=== PATIENT | female | born 1985 | race Caucasian/White ===

== ENCOUNTER → 2018-08-19 | Outpatient (CLI) | payer OTHER ==
[2017-08-04 06:42] VITALS: BMI 30.2
[~2018-08-19] MED LIST: ACET-1718 PO; CHOL10005 PO; FAMO1TAB59 PO; FERR-59 PO; IBUP-2704 PO; IBUP800T37 PO; LOR5/325 PO; METO-566 PO; ONDA4TAB97 PO; PREN-161 PO
== END ==
LOC: LAB 10:53
PROVIDERS: ATTEND Obstetrics & Gynecology
DX: R63.4 Abnormal weight loss (principal); R42 Dizziness and giddiness
CPT/HCPCS: 36415; 84443; 85027

== ENCOUNTER → 2018-08-31 | Outpatient (CLI) | payer OTHER ==
[2017-08-04 06:42] VITALS: BMI 30.2
--- NOTE | 2018-08-31 17:04 | RADIOLOGY IMAGING REPORT ---
FACILITY: [facility] - [place] PATIENT NAME: Christine Carter : 1985 MR: [id number] V: [id number] EXAM DATE: ORDERING PHYSICIAN: CARLOS ZAMORA TECHNOLOGIST: Location: [facility] Patient: Christine Carter : 1985 Visit/Account:[id number] Date of Sevice: 08/31/2018 PELVIC HISTORY: Inguinal lymphadenopathy, evaluate uterus and ovaries TECHNIQUE: Transvaginal and transabdominal ultrasound pelvis. COMPARISON: None. FINDINGS: Uterus: Retroverted; 8.6 cm length x 5.1 cm AP x 5.8 cm transverse. Myometrium: Unremarkable. Endometrium: Unremarkable; double thickness 14.6 mm. Cervix: Grossly negative. Ovaries: Right - 4.1 x 3.7 x 2.2 cm Left - 2.2 x 2.6 x 2.4 cm Blood flow is documented in each ovary by duplex Doppler ultrasound. Adnexa: Grossly unremarkable. Free pelvic fluid: Mild. IMPRESSION: Retroverted uterus Mild amount of free pelvic fluid Report Dictated By: Jazzmine Chauhan MD at 08/31/2018 4:58 PM Report E-Signed By: Jazzmine Chauhan MD at 08/31/2018 5:00 PM WSN:[email or web address]
--- NOTE | 2018-08-31 17:46 | RADIOLOGY IMAGING REPORT ---
FACILITY: [facility] - [place] PATIENT NAME: Christine Carter : 1985 MR: [id number] V: [id number] EXAM DATE: ORDERING PHYSICIAN: CARLOS ZAMORA TECHNOLOGIST: Location: [facility] [place] Patient: Christine Carter : 1985 Visit/Account:[id number] Date of Sevice: 08/31/2018 Exam type: GROIN ULTRASOUND History: Inguinal lymphadenopathy Comparison: None. Findings: There are multiple right inguinal lymph nodes present. The largest measures 1.8 x 0.7 x 0.3 cm and a ppears fatty replaced. At least five other small lymph nodes all measuring less than 1 cm identified in the right inguinal region. There are multiple left inguinal lymph nodes present the largest measures 1.4 x 0.4 x 1.6 cm and is f atty replaced. The next largest measures 1.2 x 0.8 x 0.6 cm and is also fatty replaced. At least th ree other left inguinal lymph nodes are present all measuring less than 1 cm IMPRESSION: 1. Are numerous bilateral inguinal lymph nodes as detailed above Report Dictated By: Jazzmine Chauhan MD at 08/31/2018 5:40 PM Report E-Signed By: Jazzmine Chauhan MD at 08/31/2018 5:42 PM WSN:[email or web address]
== END ==
LOC: US 00:14
PROVIDERS: ATTEND Obstetrics & Gynecology
DX: N85.4 Malposition of uterus (principal); R59.0 Localized enlarged lymph nodes
CPT/HCPCS: 76830; 76856

== ENCOUNTER → 2018-09-09 | Outpatient (REF) ==
[2017-08-04 06:42] VITALS: BMI 30.2
[2018-09-09 08:28] LABS: LDL CHOLESTEROL 85 mg/dl
== END ==
DX: Z02.9 Encounter for administrative examinations, unspecified (principal)

== ENCOUNTER → 2018-10-28 | Outpatient (CLI) | payer OTHER ==
[2017-08-04 06:42] VITALS: BMI 30.2
[~2018-10-28] MED LIST changes: +SERT-1 PO; +SERT25TA87 PO
--- NOTE | 2018-10-28 18:35 | RADIOLOGY IMAGING REPORT ---
FACILITY: [facility] PATIENT NAME: Christine Carter : 1985 MR: [id number] V: [id number] EXAM DATE: ORDERING PHYSICIAN: CARLOS ZAMORA TECHNOLOGIST: Location: [facility] - [place] Patient: Christine Carter : 1985 Visit/Account:[id number] Date of Sevice: 10/28/2018 SOFT TISSUE HEAD NECK HISTORY: Lymphadenopathy. Palpable abnormality neck. COMPARISON: Bilateral inguinal ultrasound 08/31/2018 FINDINGS: Ultrasound of the cervical radha regions was performed bilateral. RIGHT * Level V hypoechoic and heterogeneous enlarged 0.6 x 1.7 x 2.4 cm node. * Level V uniformly hypoechoic borderline enlarged 0.4 x 0.9 x 1.0 cm node. * Level II morphologically unremarkable enlarged 1.0 x 2.1 x 3.7 cm node. * Level I uniformly hypoechoic and lobulated 0.5 x 0.7 x 1.7 cm node LEFT * Level V heterogeneous 0.6 x 0.6 x 3.1 cm node. * Level II morphologically unremarkable enlarged 0.7 x 1.3 x 1.7 cm node. * Level II morphologically unremarkable enlarged 0.9 x 2.0 x 2.1 cm node. IMPRESSION: Bilateral enlarged and/or morphologically atypical cervical lymph nodes. While these may be reactive , several of them are atypical in morphology and further evaluation with surgical resection, ultrasou nd-guided tissue sampling or at least short-term ultrasound follow-up should be considered to exclude neoplasm. If ultrasound-guided tissue sampling is performed, real-time assessment of these nodes by the radiologist can be performed prior to such to identify the most appropriate node. Particularly the left level V node should be considered given its heterogeneity. Report Dictated By: Rodrigo Rivas MD at 10/28/2018 6:22 PM Report E-Signed By: Rodrigo Rivas MD at 10/28/2018 6:31 PM WSN:[email or web address]
--- NOTE | 2018-10-28 18:40 | RADIOLOGY IMAGING REPORT ---
FACILITY: [facility] - [place] PATIENT NAME: Christine Carter : 1985 MR: [id number] V: [id number] EXAM DATE: ORDERING PHYSICIAN: CARLOS ZAMORA TECHNOLOGIST: Location: [facility] [place] Patient: Christine Carter : 1985 Visit/Account:[id number] Date of Sevice: 10/28/2018 US GROIN HISTORY: Inguinal adenopathy; follow-up. COMPARISON: 08/31/2018 FINDINGS: Ultrasound of the inguinal regions was performed bilateral with attention to the inguinal lymph nodes . All visualized nodes are now within normal limits for size and morphology, largest on the left measur ing 0.5 x 0.8 x 1.2 cm (previously 0.6 x 0.8 x 1.2 cm) and the remainder subcentimeter. IMPRESSION: No enlarged or morphologically suspicious inguinal lymph nodes. Report Dictated By: Rodrigo Rivas MD at 10/28/2018 6:34 PM Report E-Signed By: Rodrigo Rivas MD at 10/28/2018 6:37 PM WSN:[email or web address]
== END ==
LOC: US 01:34
PROVIDERS: ATTEND Obstetrics & Gynecology
DX: R59.0 Localized enlarged lymph nodes (principal)
CPT/HCPCS: 76536; 76705

== ENCOUNTER → 2018-10-28 | Outpatient (CLI) | payer OTHER ==
[2017-08-04 06:42] VITALS: BMI 30.2
[~2018-10-28] MED LIST changes: -SERT-1 PO; -SERT25TA87 PO
--- NOTE | 2018-10-28 18:38 | RADIOLOGY IMAGING REPORT ---
FACILITY: [facility] - [place] PATIENT NAME: Christine Carter : 1985 MR: [id number] V: [id number] EXAM DATE: ORDERING PHYSICIAN: TRU SAGE TECHNOLOGIST: Location: [facility] Patient: Christine Carter : 1985 Visit/Account:[id number] Date of Sevice: 10/28/2018 THYROID HISTORY: COMPARISON: None. FINDINGS: SIZE: Asymmetric hypoplastic appearing left lobe. Right lobe: 1.3 x 1.7 x 4.8 cm Left lobe: 0.5 x 0.8 x 2.4 cm Isthmus: 3 mm PARENCHYMA: Homogeneous. NODULES: Right lobe: * Several subcentimeter colloid cysts, largest measuring 0.3 cm. * No nodule with high suspicion sonographic features. Left lobe: * Subcentimeter likely colloid cyst measuring less than or equal to 0.1 cm. * No nodule with high suspicion sonographic features. Isthmus: * None. VASCULARITY: Within normal limits. ADDITIONAL FINDINGS: None. IMPRESSION: 1. Asymmetric hypoplastic appearing left thyroid lobe. 2. Several subcentimeter thyroid nodules bilateral. No nodule warranting further evaluation with ti ssue sampling based on current GERMAINE guidelines. REFERENCE: 2015 [employer] Thy[employer] Management Guidelines for Adult Patients with Thyroid Nodules and D ifferentiated Thyroid Cancer: The [employer]eless Thyroid [employer] (GERMAINE) Guidelines Task Force on Thyroid Nodules and Differentiated Thyroid Cancer. Report Dictated By: Rodrigo Rivas MD at 10/28/2018 6:31 PM Report E-Signed By: Rodrigo Rivas MD at 10/28/2018 6:34 PM WSN:[email or web address]
== END ==
LOC: US 01:33
PROVIDERS: ATTEND Physician Assistant
DX: E04.1 Nontoxic single thyroid nodule (principal)
CPT/HCPCS: 76536

== ENCOUNTER 2018-11-14 03:40 | Day surgery (SDC) | payer OTHER ==
[2017-08-04 06:42] VITALS: Ht 157.5 cm; Wt 53.1 kg
[~2018-11-14] VITALS: Ht 157.5 cm; Wt 53.1 kg
[~2018-11-14 03:40] MED LIST changes: +SERT-1 PO; +SERT25TA87 PO
[2018-11-14] MEDS ORDERED: fentaNYL CITR 100 MCG/2 ML AMP ONE (10:06)
[2018-11-14] MEDS ORDERED: LIDOCAINE MPF 1% 5 ML VIAL ONE (10:07)
[2018-11-14] MEDS ORDERED: DEXAMETHASONE SOD PHOS 10MG/ML ONE (10:07)
[2018-11-14] MEDS ORDERED: KETAMINE HCL 200 MG/20 ML MDV ONE (10:07)
[2018-11-14] MEDS ORDERED: PROPOFOL EMUL(*) 10MG/ML 20 ML 40 ML ONE (10:07)
[2018-11-14] MEDS ORDERED: ONDANSETRON 4 MG/2 ML VIAL ONE (10:07)
[2018-11-14] MEDS ORDERED: FAMOTIDINE(*) 20MG/50ML PREMIX 50 ML IVPB ONE (10:30)
[2018-11-14] MEDS ORDERED: LIDO/EPI 1% MDV 1:100,000 20ML INFIL ONE (10:46)
[2018-11-14] MEDS ORDERED: BACITRACIN OINT 15 GM TUBE TP ONE (10:46)
[2018-11-14 10:48] VITALS: BP 128/85
[2018-11-14] MEDS ORDERED: NORMOSOL R SOLN(*) 1000 ML BAG 1,000 ML IV PRN (11:10)
[2018-11-14] MEDS ORDERED: LIDOCAINE/SOD BICARB 8.4% SYR ID ONE (11:10)
[2018-11-14] MEDS ORDERED: ceFAZolin(*) 1 GM VIAL 1 GM in NS(*) 0.9% 100 ML ADDVANT BAG 100 ML IVPB ONE (11:10)
[2018-11-14] MEDS ORDERED: FAMOTIDINE 20 MG TAB PO ONE (11:10)
[2018-11-14] MEDS ORDERED: MIDAZOLAM 2 MG/2 ML VIAL IVP PRN (11:10)
[2018-11-14] MEDS ORDERED: HYDR-653 PO (11:40)
[2018-11-14 12:04] VITALS: BP 99/72
[2018-11-14 12:19] VITALS: BP 121/62
[2018-11-14 12:51] VITALS: BP 98/71
[2018-11-14 13:07] VITALS: BP 102/66
[2018-11-14 13:10] VITALS: BP 110/75
--- NOTE | 2018-11-14 13:53 | OPERATIVE REPORT 1 ---
EVENT DATE: November 14, 2018 SURGEON: James Cha MD ANESTHESIOLOGIST: Marcelino Abraham MD ANESTHESIA: LMA. PREOPERATIVE DIAGNOSIS Cervical lymphadenopathy. POSTOPERATIVE DIAGNOSIS Cervical lymphadenopathy. PROCEDURE PERFORMED Excision of a left level 5 deep cervical lymph node. INDICATIONS Please refer to preoperative note. DESCRIPTION OF PROCEDURE The patient was positively identified in the preoperative area. She was there alone. Risks were again explained including, but not limited to, bleeding, infection, injury to surrounding nerves and/or vessels including the accessory nerve and those associated with anesthesia. She acknowledged understanding those risks. She was then brought back to the operative suite, laid supine on the operative table and anesthesia was administered. Once asleep, the patient was positioned and prepped and draped in usual sterile fashion. A 2 cm incision was planned overlying the cervical lymph node. Approximately 1 cc of 1% epinephrine was infiltrated. The aforementioned incision was then made with #15 blade. The underlying subcutaneous tissue was then dissected with Bovie electrocautery. I then dissected bluntly with tonsil clamps until the lymph node was encountered. This was dissected from the surrounding tissue. This was sent fresh for lymphoma prep. The wound was then copiously irrigated with interval saline solution. The skin was then closed with interrupted Nylon suture. The patient was then turned to Anesthesia for emergence. ESTIMATED BLOOD LOSS Less than 10 cc's. COMPLICATIONS No complications. MTDD
== END 2018-11-14 12:04 | disposition home or self-care (01) ==
LOC: OR 03:40
PROVIDERS: ATTEND Otolaryngology
DX: R59.1 Generalized enlarged lymph nodes (principal)
CPT/HCPCS: 38510; 81025; 88305; J0690; J1100; J2001; J2250; J2405; J2704; J3010; J3490; J7050

== ENCOUNTER → 2018-12-14 | Outpatient (CLI) | payer OTHER ==
[2017-08-04 06:42] VITALS: BMI 30.2
[~2018-12-14] MED LIST changes: +HYDR-653 PO
--- NOTE | 2018-12-16 10:04 | RADIOLOGY IMAGING REPORT ---
FACILITY: [facility] - [place] PATIENT NAME: TUSHAR NAM : [id number] MR: [id number] V: [id number] EXAM DATE: [id number] ORDERING PHYSICIAN: CARLOS ZAMORA TECHNOLOGIST: Alivia Robins RDMS PROCEDURE:US LEFT BREAST COMPARISON:None. INDICATIONS:Palpable lump in the Left breast approximate 4 o'clock position. The patient is currently breast feeding. FINDINGS: In the approximate 4 o'clock position of the Left breast 3cm from the nipple there is an 8 x4 x 9mm well circumscribed ovoid hypoechoic nodule. There is mild acoustic enhancement. The nodule is wider than tall. This likely represents a fibroadenoma although due to the solid nature a 6 month follow-up Left breast Ultrasound is recommended. In the 2 o'clock position of the Left breast approximately 4cm from the nipple there is an ovoid heterogeneous region with both echogenic and hypoechoic regions. This may represent an additional fibroadenoma or possibly an intramammary lymph node or an area of prominent ducts. This also could be further evaluated in 6 months with a Left breast Ultrasound. DIAGNOSTIC CATEGORY 3--PROBABLY BENIGN FINDING. RECOMMENDATIONS: SIX MONTH FOLLOW-UP ULTRASOUND: LEFT BREAST. IMPRESSION: BIRADS 3: Probably benign finding. A 6 month follow-up Left breast Ultrasound is recommended as described. Dictated by: Jazzmine Chauhan M.D. on 12/14/2018 at 14:40 Transcribed by: DIANA on 12/16/2018 at 10:01 Approved by: Jazzmine Chauhan M.D. on 12/16/2018 at 10:04 [facility]
--- NOTE | 2018-12-16 10:04 | RADIOLOGY IMAGING REPORT ---
FACILITY: [facility] - [place] PATIENT NAME: TUSHAR NAM : [id number] MR: [id number] V: [id number] EXAM DATE: ORDERING PHYSICIAN: CARLOS ZAMORA TECHNOLOGIST: Brandee Mueller PROCEDURE:BILATERAL DIAGNOSTIC DIGITAL MAMMOGRAM WITH CAD ASSISTED INTERPRETATION & 3D TOMOSYNTHESIS COMPARISON:None. INDICATIONS:Left breast palpable lump upper outer quadrant (the patient however points to the palpable area in the 4 o'clock position of the Left breast). FINDINGS: The breasts are extremely dense which lowers the sensivity of mammography. There is an ovoid lobular density in the upper portion of the Right breast on the Right MLO view in the middle 1/3. Today's Right breast Ultrasound demonstrated prominent ducts in the Right breast although no discreet mass is identified. There are lobular densities seen in the upper and lower portions of the Left breast on the Left MLO view in the anterior 1/3. Today's Left breast Ultrasound did demonstrate a well circumscribed hypoechoic mass in the 4 o'clock position of the Left breast and heterogeneous area in the approximate 2 o'clock position which may account for these findings. DIAGNOSTIC CATEGORY 3--PROBABLY BENIGN FINDING. RECOMMENDATIONS: SIX MONTH FOLLOW-UP ULTRASOUND: LEFT BREAST. IMPRESSION: BIRADS 3: Probably benign finding. A 6 month follow-up Left breast Ultrasound is recommended as described in Today's Left breast Ultrasound report. Dictated by: Jazzmine Chauhan M.D. on 12/14/2018 at 14:51 Transcribed by: DIANA on 12/16/2018 at 9:50 Approved by: Jazzmine Chauhan M.D. on 12/16/2018 at 10:04 [facility]
--- NOTE | 2018-12-16 10:05 | RADIOLOGY IMAGING REPORT ---
FACILITY: [facility] PATIENT NAME: TUSHAR NAM : [id number] MR: [id number] V: [id number] EXAM DATE: [id number] ORDERING PHYSICIAN: CARLOS ZAMORA TECHNOLOGIST: Alivia Robins RDMS PROCEDURE:US RIGHT BREAST COMPARISON:Today's bilateral mammogram. INDICATIONS:Further evaluation FINDINGS: There are numerous dilated ducts seen throughout the Right breast most prominent in the 10-11 o'clock position. There is no evidence of intraductal mass or debris. No other abnormality is identified in the 10-3 o'clock position of the Right breast. DIAGNOSTIC CATEGORY 2--BENIGN FINDING. RECOMMENDATIONS: CLINICAL EVALUATION. IMPRESSION: BIRADS 2: Benign finding. There are prominent ducts in the Right breast (the patient is currently breast feeding) although no evidence of intraductal mass or debris. Please see Today's diagnostic mammogram and Left breast Ultrasound reports. Dictated by: Jazzmine Chauhan M.D. on 12/14/2018 at 14:48 Transcribed by: DIANA on 12/16/2018 at 9:54 Approved by: Jazzmine Chauhan M.D. on 12/16/2018 at 10:04 [facility]
== END ==
LOC: US 00:18
PROVIDERS: ATTEND Obstetrics & Gynecology
DX: N63.20 Unspecified lump in the left breast, unspecified quadrant (principal)
CPT/HCPCS: 77062; 77066